=== PATIENT | female | born 1955 | race Caucasian/White ===

== ENCOUNTER 2016-11-24 18:30 | Emergency (ER) | payer OTHER ==
[2016-11-24] MEDS ORDERED: BUFFERED LIDOCAINE 10 ML SYRINGE ONE (19:37)
== END 2016-11-24 20:17 | disposition home or self-care (01) ==
DX: S61.012A Laceration without foreign body of left thumb without damage to nail, initial encounter (principal); W26.0XXA Contact with knife, initial encounter; I10 Essential (primary) hypertension; E11.9 Type 2 diabetes mellitus without complications; Z79.4 Long term (current) use of insulin; Z79.82 Long term (current) use of aspirin

== ENCOUNTER 2017-02-03 10:56 | Outpatient (CLI) | payer OTHER | END 2017-02-03 10:57 | disposition home or self-care (01) | DX: G47.33 Obstructive sleep apnea (adult) (pediatric) (principal); G47.09 Other insomnia ==

== ENCOUNTER 2017-10-17 14:41 | Emergency (ER) | payer OTHER ==
[2017-10-17] MEDS ORDERED: SODIUM CHLORIDE 0.9% 1,000 ML IV ONE (15:18)
--- NOTE | 2017-10-17 15:24 | ED Physician Documentation ---
History of Present Illness - Stated complaint Stated Complaint: HEADACHE/DISORIENTED - Chief complaint Chief Complaint: Cardiac - History obtained from History obtained from: Patient, Family - History of Present Illness Timing: How many days ago (3) - Additonal information Additional information: 62-year-old female had open heart surgery with a tissue valve replacement done at [facility] in [place] 10 days ago. She was discharged from the hospital 6 days ago. She has been on some furosemide since her surgery and yesterday she went to [place] they told her she was a bit dehydrated and stopped the furosemide and start some extra hydration. She did not get IV fluid yesterday. The patient is complaining of a headache that she has had for the past 3 days and some hallucinations she has been experiencing since right after her surgery. She describes vivid visual hallucinations that were worse 2 nights ago a bit better yesterday and are not occurring right now. She is concerned about her headache and her hallucinations related to her surgery. She is feeling improved with her stamina she is able to do more walking than she was been able to do previously by huge margin. She was barely able to walk across the room without shortness of breath prior to the surgery and now is walking up the grade of the driveway to her home easily. She has not had fever or vomiting. She has been off of her pain medication for 3 days. Review of Systems Constitutional: denies: Fever, Chills, Myalgias, Fatigue Eyes: denies: Decreased vision Ears: denies: Ear pain Nose: denies: Rhinorrhea / runny nose, Congestion Throat: denies: Sore throat Cardiac: denies: Chest pain / pressure, Palpitations Respiratory: denies: Dyspnea, Cough GI: denies: Abdominal Pain, Nausea, Vomiting : denies: Dysuria, Frequency Skin: denies: Rash Musculoskeletal: denies: Neck pain, Back pain, Extremity pain Neurologic: reports: Headache. denies: Generalized weakness, Focal weakness, Numbness, Difficulty speaking, Confused, Head injury, LOC Psychiatric: reports: Hallucinations. denies: Depressed, Suicidal PD PAST MEDICAL HISTORY - Past Medical History Cardiovascular: Hypertension Respiratory: Asthma, Pneumonia Endocrine/Autoimmune: Type 2 diabetes - Past Surgical History Past Surgical History: Yes General: Cholecystectomy /MACHINE GRINDER: section HEENT: Tonsil/Adenoidectomy - Present Medications Home Medications: Ambulatory Orders Medication Instructions Recorded Confirmed Aspirin [Children's Aspirin] 81 mg PO DAILY 10/01/13 10/17/17 Metformin HCl [Metformin HCl ER] 1,000 mg PO BID 10/01/13 10/17/17 Allopurinol 100 mg PO DAILY 03/30/16 10/17/17 Atorvastatin Calcium 40 mg PO DAILY 03/30/16 10/17/17 Gemfibrozil 1 tab PO BID 03/30/16 10/17/17 Insulin Aspart (Vial) [NovoLOG] 4 unit SQ TID 03/30/16 10/17/17 Insulin Glargine,Hum.rec.anlog 72 units SQ DAILY 03/30/16 10/17/17 [Lantus] Lisinopril/Hydrochlorothiazide 03/30/16 [Lisinopril-Hctz 20-12.5 mg Tab] Venlafaxine HCl [Effexor Xr] 150 mg DAILY 03/30/16 10/17/17 Furosemide [Lasix] 20 mg PO DAILY 10/17/17 10/17/17 Hydrocodone/Acetaminophen [[place] 1 - 2 each PO Q4H PRN 10/17/17 10/17/17 5-325 Tablet] Insulin Glargine [Lantus Solostar] 76 unit SQ QPM 10/17/17 10/17/17 Metoprolol Tartrate 25 mg PO BID 10/17/17 10/17/17 Omeprazole [PriLOSEC] 20 mg PO DAILY 10/17/17 10/17/17 Potassium Chloride 10 meq PO DAILY 10/17/17 10/17/17 Sennosides/Docusate Sodium 1 tab PO BID 10/17/17 10/17/17 [Senna-Docusate Sodium Tablet] - Allergies Allergies/Adverse Reactions: Allergies Allergy/AdvReac Type Severity Reaction Status Date / Time No Known Drug Allergies Allergy Verified 10/17/17 14:53 - Social History Does the pt smoke?: No Smoking Status: Never smoker Does the pt drink ETOH?: No Does the pt have substance abuse?: No - Immunizations Immunizations are current?: Yes - POLST Patient has POLST: No PD ED PE NORMAL - Vitals Vital signs reviewed: Yes (normal ) - General General: Alert and oriented X 3, No acute distress, Well developed/nourished - HEENT HEENT: Atraumatic, PERRL, EOMI, Ears normal, Moist mucous membranes, Pharynx benign, Dentition benign - Neck Neck: Supple, no meningeal sign, No bony TTP - Cardiac Cardiac: RRR, No murmur - Respiratory Respiratory: No respiratory distress, Clear bilaterally, Other (The margins of the surgical wounds are with the expected degree of inflamation 10 days post op. There is no surrounding inflamation and no drainage. ) - Abdomen Abdomen: Soft, Non tender - Back Back: No CVA TTP, No spinal TTP - Derm Derm: Normal color, Warm and dry, No rash - Extremities Extremities: No deformity, No edema - Neuro Neuro: No motor deficit, No sensory deficit Eye Opening: Spontaneous Motor: Obeys Commands Verbal: Oriented GCS Score: 15 - Psych Psych: Normal mood, Normal affect Results - Vitals Vitals: Vital Signs - 24 hr 10/17/17 14:47 Temperature 36.0 C L Heart Rate 83 Respiratory 16 Rate Blood Pressure 134/74 H O2 Saturation 98 Oxygen O2 Source Room air - EKG (time done) 1447 Rate: Rate (enter#) (87) Rhythm: NSR Intervals: LBBB Compare to prior EKG: Old EKG unavailable Computer interpretation: Agree with computer - Labs Labs: Laboratory Tests 10/17/17 10/17/17 10/17/17 14:54 15:00 15:00 WBC 9.0 RBC 3.89 L Hgb 11.0 L Hct 32.2 L MCV 82.8 MCH 28.3 MCHC 34.1 RDW 14.3 Plt Count 286 MPV 7.5 L Neut # 5.8 Lymph # 2.1 [place] # 0.8 Eos # 0.2 Baso # 0.1 Absolute Nucleated RBC 0.00 Nucleated RBC % 0.0 Manual Slide Review Indicated Sodium 136 Potassium 4.0 Chloride 99 L Carbon Dioxide 25 Anion Gap 12.0 BUN 27 H Creatinine 1.0 Estimated GFR (MDRD) 56 L Glucose 105 H POC Whole Bld Glucose 106 H Calcium 9.6 Total Bilirubin 0.4 AST 29 ALT 19 Alkaline Phosphatase 53 Troponin I Total Protein 7.6 Albumin 3.2 Globulin 4.4 H Albumin/Globulin Ratio 0.7 L Lipase 47 Urine Color Urine Clarity Urine pH Ur Specific [place] Urine Protein Urine Glucose (UA) Urine Ketones Urine Occult Blood Urine Nitrite Urine Bilirubin Urine Urobilinogen Ur Leukocyte Esterase Ur Microscopic Review Urine Culture Comments 10/17/17 10/17/17 15:00 15:15 WBC RBC Hgb Hct MCV MCH MCHC RDW Plt Count MPV Neut # Lymph # [place] # Eos # Baso # Absolute Nucleated RBC Nucleated RBC % Manual Slide Review Sodium Potassium Chloride Carbon Dioxide Anion Gap BUN Creatinine Estimated GFR (MDRD) Glucose POC Whole Bld Glucose Calcium Total Bilirubin AST ALT Alkaline Phosphatase Troponin I 0.07 Total Protein Albumin Globulin Albumin/Globulin Ratio Lipase Urine Color YELLOW Urine Clarity CLEAR Urine pH 6.0 Ur Specific [place] 1.010 Urine Protein NEGATIVE Urine Glucose (UA) NEGATIVE Urine Ketones NEGATIVE Urine Occult Blood NEGATIVE Urine Nitrite NEGATIVE Urine Bilirubin NEGATIVE Urine Urobilinogen 0.2 (NORMAL) Ur Leukocyte Esterase NEGATIVE Ur Microscopic Review NOT INDICATED Urine Culture Comments NOT INDICATED - Rads (name of study) CT head without Radiology: Prelim report reviewed (Impression: No acute intracranial CT abnormality.), EMP read indepedently, See rad report Procedures - IVC sono (time) 1520 Bedside IVC sono: IVC measures (cm) (1.00), IVC collapsed c insp (cm) (complete) , Dehydration (est just > 1 liter down.) PD MEDICAL DECISION MAKING - ED course Complexity details: reviewed old records, reviewed results, re-evaluated patient , considered differential, d/w patient, d/w family ED course: 62 y/o female with a history of critical arotic stenosis has had a valve replacement done 10 days ago and appears to be recovering well. Today she is here with the chief complaint of confusion and headache and they were told to come to the ED for evaluation. She now feels her symptoms are some improved and I cannot get any confusion from her on history this afternoon. Seems well. She is hydrated with a liter of IV saline she feels well and is discharged. Departure - Departure Disposition: 01 Home, Self Care Clinical Impression: Dehydration Condition: Stable Instructions: ED Dehydration Follow-Up: BRY BROWN MD [Primary Care Provider] -
[2017-10-17 15:36] LABS: BASOPHILS # (AUTO) 0.1 10^3/uL (0.0-0.1); BASOPHILS % (AUTO) 0.6 %; EOSINOPHILS # (AUTO) 0.2 10^3/uL (0.0-0.7); HCT - HEMATOCRIT 32.2 % (37.0-47.0); LYMPHOCYTES # (AUTO) 2.1 10^3/uL (1.5-3.5); LYMPHOCYTES % (AUTO) 23.9 %; MEAN CORPUSCULAR HEMOGLOBIN 28.3 pg (27.0-31.0); MEAN CORPUSCULAR HGB CONC 34.1 g/dL (32.0-36.0); MEAN CORPUSCULAR VOLUME 82.8 fL (81.0-99.0); MEAN PLATELET VOLUME 7.5 fL (7.9-10.8); MONOCYTES # (AUTO) 0.8 10^3/uL (0.0-1.0); MONOCYTES % (AUTO) 9.3 %; NEUTROPHILS # (AUTO) 5.8 10^3/uL (1.5-6.6); NEUTROPHILS % (AUTO) 64.2 %; RED BLOOD COUNT 3.89 10^6/uL (4.20-5.40); RED CELL DISTRIBUTION WIDTH 14.3 % (12.0-15.0)
[2017-10-17 15:41] LABS: BILIRUBIN,URINE NEGATIVE (NEGATIVE)
[2017-10-17 15:43] LABS: UA CHARGE (STRIP ONLY) YES; UR CULTURE IF IND NOT INDICATED
[2017-10-17 15:47] LABS: ALBUMIN/GLOBULIN RATIO 0.7 (1.0-2.2); BILIRUBIN,TOTAL 0.4 mg/dL (0.2-1.0); CALCIUM 9.6 mg/dL (8.5-10.3); TOTAL PROTEIN 7.6 g/dL (6.7-8.2)
--- NOTE | 2017-10-17 16:05 | CT Preliminary Report ---
Exam: CT HEAD W/O IMPRESSION: No acute intracranial CT abnormality. [facility] SITE ID: [id number]
--- NOTE | 2017-10-17 16:07 | CT Report ---
EXAM: CT HEAD EXAM DATE: 10/17/2017 03:41 PM. CLINICAL HISTORY: Headache and hallucinations. COMPARISON: None. TECHNIQUE: Multiaxial CT images were obtained from the foramen magnum to the vertex. Reformats: Coron al. IV contrast: None. In accordance with CT protocol optimization, one or more of the following dose reduction techniques w ere utilized for this exam: automated exposure control, adjustment of mA and/or KV based on patient s ize, or use of iterative reconstructive technique. FINDINGS: Parenchyma: No intraparenchymal hemorrhage. No evidence of mass, midline shift, or CT findings of inf arction. Rankin-white differentiation is distinct. Extraaxial Spaces: Normal for age. No subdural or epidural collections identified. Ventricles: Normal in size and position. Sinuses and Orbits: Imaged paranasal sinuses, orbits, and mastoids show no significant abnormality. Bones: No evidence of fracture or calvarial defect. Other: None. IMPRESSION: No acute intracranial CT abnormality. [facility] Referring Provider Line: [phone] SITE ID: [id number]
[2017-10-17 16:54] VITALS: BP 128/62
[2017-10-17 17:28] LABS: PLATELET ESTIMATE, MANUAL NORMAL (130-450,000) (NORMAL); PLATELET MORPHOLOGY NORMAL APPEARANCE (NORMAL); WBC MORPHOLOGY (MULTIPLE) NORMAL APPEARANCE (NORMAL)
== END 2017-10-17 16:59 | disposition home or self-care (01) ==
LOC: ED 14:41
DX: E86.0 Dehydration (principal); R51 Headache; R41.0 Disorientation, unspecified; R44.1 Visual hallucinations; Z95.2 Presence of prosthetic heart valve; I10 Essential (primary) hypertension; E11.9 Type 2 diabetes mellitus without complications; Z79.4 Long term (current) use of insulin; Z79.82 Long term (current) use of aspirin
CPT/HCPCS: 36415; 70450; 80053; 81001; 81003; 83690; 84484; 85025; 87086; 93005; 99283

== ENCOUNTER 2017-11-02 13:16 | Emergency (ER) | payer OTHER ==
--- NOTE | 2017-11-02 13:38 | ED Physician Documentation ---
PD HPI CHEST PAIN - Stated complaint Stated Complaint: CHEST PX/SOA/LIGHT HEADED - Chief complaint Chief Complaint: Cardiac - History obtained from History obtained from: Patient - History of Present Illness Timing - onset: Other (She had aortic valve replacement In early October at [facility]. She is currently on metoprolol 50 mg twice daily as well as other medications but that is the only cardiac medication. She has a heart monitor on right now because she has been having arrhythmias. It has not been analyzed yet. Today at 11 AM developed more of a racing heart rate and some chest pain. Using a pulse oximeter at home she noted a wide range and her heart rate, down to the 20s and up to 120.) Review of Systems Ten Systems: 10 systems reviewed and negative Constitutional: reports: Reviewed and negative Nose: reports: Reviewed and negative Cardiac: reports: Chest pain / pressure, Palpitations. denies: Pedal edema, Calf pain Respiratory: denies: Dyspnea, Cough PD PAST MEDICAL HISTORY - Past Medical History Cardiovascular: Hypertension Respiratory: Asthma, Pneumonia Endocrine/Autoimmune: Type 2 diabetes - Past Surgical History Past Surgical History: Yes General: Cholecystectomy /WINDOW ASSEMBLER: section Cardiovascular: Valve replacement HEENT: Tonsil/Adenoidectomy - Present Medications Home Medications: Ambulatory Orders Medication Instructions Recorded Confirmed Aspirin [Children's Aspirin] 81 mg PO DAILY 10/01/13 11/02/17 Metformin HCl [Metformin HCl ER] 1,000 mg PO BID 10/01/13 11/02/17 Allopurinol 100 mg PO DAILY 03/30/16 11/02/17 Atorvastatin Calcium 40 mg PO DAILY 03/30/16 11/02/17 Gemfibrozil 1 tab PO BID 03/30/16 11/02/17 Insulin Aspart (Vial) [NovoLOG] 4 unit SQ TID 03/30/16 11/02/17 Insulin Glargine,Hum.rec.anlog 72 units SQ DAILY 03/30/16 11/02/17 [Lantus] Venlafaxine HCl [Effexor Xr] 150 mg DAILY 03/30/16 11/02/17 Furosemide [Lasix] 20 mg PO DAILY 10/17/17 11/02/17 Hydrocodone/Acetaminophen [[place] 1 - 2 each PO Q4H PRN 10/17/17 11/02/17 5-325 Tablet] Insulin Glargine [Lantus Solostar] 75 unit SQ QPM 10/17/17 11/02/17 Metoprolol Tartrate 50 mg PO BID 10/17/17 11/02/17 Omeprazole [PriLOSEC] 20 mg PO DAILY 10/17/17 11/02/17 Potassium Chloride 10 meq PO DAILY 10/17/17 11/02/17 Sennosides/Docusate Sodium 1 tab PO BID 10/17/17 11/02/17 [Senna-Docusate Sodium Tablet] - Allergies Allergies/Adverse Reactions: Allergies Allergy/AdvReac Type Severity Reaction Status Date / Time No Known Drug Allergies Allergy Verified 11/02/17 13:28 - Social History Does the pt smoke?: No Smoking Status: Never smoker Does the pt drink ETOH?: No Does the pt have substance abuse?: No - Family History Family history: reports: Non contributory - Immunizations Immunizations are current?: Yes - POLST Patient has POLST: No PD ED PE NORMAL - Vitals Vital signs reviewed: Yes - General General: Alert and oriented X 3, Other (On the monitor initially she is in supraventricular bigeminy with narrow complexes, occasionally having short and long runs of V. tach with a pulse.) - HEENT HEENT: PERRL, EOMI - Neck Neck: Supple, no meningeal sign, No bony TTP - Cardiac Cardiac: No murmur, Other (Irregular) - Respiratory Respiratory: No respiratory distress, Clear bilaterally - Abdomen Abdomen: Soft, Non tender - Derm Derm: Other (Sternotomy incision clean dry and intact, small scab at the top.) - Extremities Extremities: No edema, No calf tenderness / cord - Neuro Neuro: Alert and oriented X 3, Normal speech - Psych Psych: Normal mood, Normal affect Results - Vitals Vitals: Vital Signs - 24 hr 11/02/17 13:20 Temperature 35.6 C L Heart Rate 61 Respiratory 16 Rate Blood Pressure 137/51 H O2 Saturation 98 Oxygen O2 Source Room air - EKG (time done) 1328 Rate: Rate (enter#) (71) Rhythm: NSR (With supraventricular bigeminy) Intervals: Normal NV QRS: LVH Ischemia: Normal ST segments Computer interpretation: Agree with computer - Labs Labs: Laboratory Tests 11/02/17 11/02/17 11/02/17 13:35 13:35 13:35 WBC 7.6 RBC 4.18 L Hgb 11.5 L Hct 34.5 L MCV 82.5 MCH 27.5 MCHC 33.3 RDW 15.0 Plt Count 366 MPV 7.2 L PT 12.5 INR 1.1 Sodium 141 Potassium 4.2 Chloride 104 Carbon Dioxide 23 Anion Gap 14.0 H BUN 21 H Creatinine 0.9 Estimated GFR (MDRD) 63 L Glucose 171 H Calcium 9.4 Magnesium 1.3 L Total Bilirubin 0.4 AST 21 ALT 17 Alkaline Phosphatase 81 Total Creatine Kinase 25 Total Protein 7.9 Albumin 3.6 Globulin 4.3 H Albumin/Globulin Ratio 0.8 L Lipase 39 PD MEDICAL DECISION MAKING - ED course ED course: 62-year-old woman with a recent aortic valve replacement presents with palpitations and mild chest pain. Initial rhythm on the monitor with supraventricular bigeminy but she did go into a stable V. tach with a pulse and blood pressure well we were talking. Spoke with Dr. Matthews, cardiology at [facility] who recommended amiodarone bolus 150 mg, and infusion. Following that I spoke with Dr. Cruz, the hospitalist there, There was some Confusion about who would be the accepting physician and they will call me back. Electrolytes notable for hypomagnesemia which was repleted with 2 g IV. - Critical Care Time(min): 40 Time Includes: Direct patient care, Review records, Reassess patient, Document care, Coordinate care, Medical consult, Family consult for tx dec Data interpretation: Labs, Pulse ox Procedures included in critical care time: Peripheral IV Procedures excluded from critical care time: EKG Departure - Departure Disposition: 02 Transfer Acute Care Hosp Clinical Impression: V-tach Condition: Stable
[2017-11-02 13:50] LABS: BASOPHILS % (AUTO) 0.7 %; EOSINOPHILS % (AUTO) 5.4 %; HGB - HEMOGLOBIN 11.5 g/dL (12.0-16.0); LYMPHOCYTES % (AUTO) 36.6 %; MEAN CORPUSCULAR HEMOGLOBIN 27.5 pg (27.0-31.0); MEAN CORPUSCULAR HGB CONC 33.3 g/dL (32.0-36.0); MEAN CORPUSCULAR VOLUME 82.5 fL (81.0-99.0); MEAN PLATELET VOLUME 7.2 fL (7.9-10.8); MONOCYTES % (AUTO) 7.8 %; NEUTROPHILS % (AUTO) 49.5 %; PLT - PLATELET COUNT 366 10^3/uL (130-450); RED BLOOD COUNT 4.18 10^6/uL (4.20-5.40); WHITE BLOOD COUNT 7.6 x10^3/uL (4.8-10.8)
[2017-11-02] MEDS ORDERED: AMIODARONE 150 MG/3 ML VIAL IVP STA (13:51)
[2017-11-02 13:52] LABS: ABNORMAL LYMPHS % (MANUAL) 0 %
[2017-11-02] MEDS ORDERED: AMIODARONE 150 MG/100 ML 100 ML IV ONE (13:52)
[2017-11-02 13:53] LABS: INR 1.1 (0.8-1.2); PT - PROTHROMBIN TIME 12.5 secs (9.9-12.6)
[2017-11-02 13:59] LABS: ALBUMIN 3.6 g/dL (3.2-5.5); ALBUMIN/GLOBULIN RATIO 0.8 (1.0-2.2); BILIRUBIN,TOTAL 0.4 mg/dL (0.2-1.0); CALCIUM 9.4 mg/dL (8.5-10.3); CREATININE 0.9 mg/dL (0.4-1.0); MAGNESIUM 1.3 mg/dL (1.7-2.8); TOTAL PROTEIN 7.9 g/dL (6.7-8.2)
[2017-11-02] MEDS ORDERED: AMIODARONE 360 MG/200 ML 200 ML IV ONE (13:59)
[2017-11-02] MEDS ORDERED: MAGNESIUM SULFATE 2 GRAM 2 GM/50 ML BAG IV ONE (14:02)
[2017-11-02 14:04] LABS: TROPONIN I < 0.04 ng/mL (<0.49)
[2017-11-02 14:06] LABS: CREATINE KINASE MB 1.4 ng/mL (0.6-6.3)
[2017-11-02 14:11] LABS: BAND NEUTROPHILS % (MANUAL) 5 %; EOSINOPHILS # (MANUAL) 0.2 10^3/uL (0-0.7); LYMPHOCYTES # (MANUAL) 2.7 10^3/uL (1.5-3.5); LYMPHOCYTES % (MANUAL) 36 %; MONOCYTES # (MANUAL) 0.4 10^3/uL (0.0-1.0); MYELOCYTES % (MANUAL) 3 %; NEUTROPHILS % (MANUAL) 48 %
[2017-11-02 14:13] LABS: DIFFERENTIAL COMMENT MANUAL DIFFERENTIAL; PLATELET ESTIMATE, MANUAL NORMAL (130-450,000) (NORMAL); PLATELET MORPHOLOGY NORMAL APPEARANCE (NORMAL); RBC MORPHOLOGY (MULTIPLE) 1+ POLYCHROMASIA (NORMAL)
[2017-11-02 16:13] VITALS: BP 117/66
== END 2017-11-02 16:41 | disposition short-term general hospital (02) ==
LOC: ED 13:16
DX: I47.2 Ventricular tachycardia (principal); Z95.2 Presence of prosthetic heart valve; I10 Essential (primary) hypertension; E11.9 Type 2 diabetes mellitus without complications; Z79.4 Long term (current) use of insulin; J45.909 Unspecified asthma, uncomplicated; Z79.82 Long term (current) use of aspirin
CPT/HCPCS: 36415; 80053; 82550; 82553; 83690; 83735; 84484; 85025; 85610; 93005; 96365; 96366; 96375; 99284; 99291; J0282

== ENCOUNTER 2018-03-19 08:20 | Outpatient (CLI) | payer OTHER ==
[2018-03-19] MEDS ORDERED: GADOBUTROL 10 MMOL/10 ML SYRINGE ONE (08:38)
[2018-03-19] MEDS ORDERED: GADOBUTROL 10 MMOL/10 ML SYRINGE IVP ONE (09:24)
--- NOTE | 2018-03-19 22:01 | MRI Report ---
EXAM: MRI BRAIN WITHOUT AND WITH CONTRAST EXAM DATE: 03/19/2018 09:35 AM. CLINICAL HISTORY: Dizziness and giddiness. COMPARISON: CT scan of the head without contrast 10/17/2017. TECHNIQUE: Multiplanar, multisequence T1-weighted and fluid-sensitive MR sequences of the brain were performed. Sequences optimized for routine evaluation. Other: None. IV Contrast: 10 mL Gadavist. FINDINGS: The diffusion-weighted images are normal. There is no evidence of acute or subacute cerebral infarcti on. The corpus callosum is of normal size and configuration. The pituitary and sella are normal. The aircraft engineer niocervical junction is normal. The images are degraded by extensive motion. There is a punctate focus of susceptibility demonstrated in the right temporal lobe. There is a larger focus of susceptibility in the left frontal lobe measu ring 4 mm. This can be secondary to old blood products from remote microhemorrhages from chronic hype rtensive encephalopathy versus amyloid angiopathy. Other etiologies which can produce a similar appea carlos would include cavernoma. The FLAIR images demonstrate a few punctuate T2 hyperintensities within the subcortical, deep, and pe riventricular white matter. This is consistent with a mild degree of chronic small vessel ischemia. There is no significant generalized volume loss. There is normal enhancement within the brain parenchyma. There is normal enhancement within the deep venous sinuses. IMPRESSION: 1. The images are degraded by motion. 2. There is no evidence of acute or subacute cerebral infarction. 3. There is a punctate focus of susceptibility in the right temporal lobe and a larger focus in the l eft frontal lobe. These are consistent with old blood products from a prior microhemorrhage which can be seen in cases of chronic hypertensive encephalopathy versus amyloid angiopathy. Cavernoma can pro duce a similar appearance. 4. There is no evidence of brain mass. 5. There is mild degree of chronic small vessel ischemia. Referring Provider Line: [phone] SITE ID: [id number]
== END 2018-03-19 08:21 | disposition home or self-care (01) ==
LOC: DI 08:20
PROVIDERS: ATTEND Internal Medicine
DX: R42 Dizziness and giddiness (principal)
CPT/HCPCS: 70553; A9585

== ENCOUNTER 2019-02-07 09:55 | Outpatient (CLI) | payer OTHER | END 2019-02-07 09:56 | disposition home or self-care (01) | LOC: SC 09:55 | PROVIDERS: ATTEND Nurse Practitioner Family | DX: G47.33 Obstructive sleep apnea (adult) (pediatric) (principal) | CPT/HCPCS: 99212; 99215 ==

== ENCOUNTER 2019-04-04 10:48 | Outpatient (CLI) | payer OTHER | END 2019-04-04 10:49 | disposition home or self-care (01) | LOC: SC 10:48 | PROVIDERS: ATTEND Nurse Practitioner Family | DX: G47.33 Obstructive sleep apnea (adult) (pediatric) (principal) | CPT/HCPCS: 99212; 99214 ==

== ENCOUNTER 2020-06-20 12:03 | Emergency (ER) | payer MEDICARE, OTHER ==
--- NOTE | 2020-06-20 12:54 | ED Physician Documentation ---
PD HPI HEENT - Stated complaint Stated Complaint: DIZZINESS - Chief complaint Chief Complaint: General - History obtained from History obtained from: Patient - History of Present Illness Timing - onset: Today Timing - details: Still present, Waxing and waning Location: Other (onset vertigo feeling when got out of bed this morning. had it briefly when got out of bed ysterday but improved after 15-20 minutes. Persists here today and worse with ROM of the head.) Worsens: Position Associated symptoms: Congestion. No: Fever, Rhinorrhea, Cough Similar symptoms before: Diagnosis (vertigo in the past. no recent problems.) Recently seen: Not recently seen Review of Systems Constitutional: denies: Fever, Chills Eyes: denies: Loss of vision, Decreased vision Ears: reports: Loss of hearing. denies: Ear pain Nose: reports: Congestion Throat: denies: Sore throat Respiratory: denies: Cough GI: denies: Abdominal Pain, Nausea Neurologic: reports: Head injury (she says she did fall accidentally few weeks ago and struck head. Mild headache at times.). denies: Focal weakness, Numbness PD PAST MEDICAL HISTORY - Past Medical History Cardiovascular: Hypertension Respiratory: Asthma, Pneumonia Endocrine/Autoimmune: Type 2 diabetes - Past Surgical History Past Surgical History: Yes General: Cholecystectomy /REAL ESTATE CLOSER: section Cardiovascular: Valve replacement HEENT: Tonsil/Adenoidectomy - Present Medications Home Medications: Ambulatory Orders Medication Instructions Recorded Confirmed Aspirin [Children's Aspirin] 81 mg PO DAILY 10/01/13 11/02/17 Metformin HCl [Metformin HCl ER] 1,000 mg PO BID 10/01/13 11/02/17 Atorvastatin Calcium 40 mg PO DAILY 03/30/16 11/02/17 Insulin Aspart (Vial) [NovoLOG] 4 unit SQ TID 03/30/16 11/02/17 Insulin Glargine,Hum.rec.anlog 72 units SQ DAILY 03/30/16 11/02/17 [Lantus] Venlafaxine HCl [Effexor Xr] 150 mg DAILY 03/30/16 11/02/17 allopurinoL [Allopurinol] 100 mg PO DAILY 03/30/16 11/02/17 gemfibroziL [Gemfibrozil] 1 tab PO BID 03/30/16 11/02/17 Furosemide [Lasix] 20 mg PO DAILY 10/17/17 11/02/17 Hydrocodone/Acetaminophen [[place] 1 - 2 each PO Q4H PRN 10/17/17 11/02/17 5-325 Tablet] Insulin Glargine [Lantus Solostar] 75 unit SQ QPM 10/17/17 11/02/17 Metoprolol Tartrate 50 mg PO BID 10/17/17 11/02/17 Omeprazole [PriLOSEC] 20 mg PO DAILY 10/17/17 11/02/17 Potassium Chloride 10 meq PO DAILY 10/17/17 11/02/17 Sennosides/Docusate Sodium 1 tab PO BID 10/17/17 11/02/17 [Senna-Docusate Sodium Tablet] Cetirizine [ZyrTEC] 10 mg PO DAILY #15 tablet 06/20/20 Fluticasone [Flonase] 1 sprays AKIL BID #1 bottle 06/20/20 Meclizine HCl 25 mg PO Q6H PRN #30 tablet 06/20/20 - Allergies Allergies/Adverse Reactions: Allergies Allergy/AdvReac Type Severity Reaction Status Date / Time No Known Drug Allergies Allergy Verified 11/02/17 13:28 - Social History Does the pt smoke?: No Smoking Status: Never smoker Does the pt drink ETOH?: No Does the pt have substance abuse?: No - Immunizations Immunizations are current?: Yes - POLST Patient has POLST: No PD ED PE NORMAL - Vitals Vital signs reviewed: Yes - General General: Alert and oriented X 3, No acute distress, Well developed/nourished - HEENT HEENT: Atraumatic, PERRL, EOMI (with nystagmus to the right. ), Moist mucous membranes, Pharynx benign. No: Ears normal (left is good. Right TM with fluid bulging. No redness nor purulence.) - Neck Neck: Supple, no meningeal sign, No adenopathy - Cardiac Cardiac: RRR, No murmur - Respiratory Respiratory: Clear bilaterally - Derm Derm: Normal color, Warm and dry - Neuro Neuro: Alert and oriented X 3, subway guard 2-12 intact, No motor deficit, No sensory deficit, Normal speech, Other Eye Opening: Spontaneous Motor: Obeys Commands Verbal: Oriented GCS Score: 15 Results - Vitals Vitals: Vital Signs - 24 hr 06/20/20 06/20/20 06/20/20 12:09 13:01 15:26 Temperature 37 C Heart Rate 78 75 69 Respiratory 16 14 17 Rate Blood Pressure 150/70 H 182/66 H 147/75 H O2 Saturation 95 97 96 Oxygen O2 Source Room air - Labs Labs: Laboratory Tests 06/20/20 06/20/20 06/20/20 13:41 13:41 13:41 WBC 7.5 RBC 4.55 Hgb 13.2 Hct 39.0 MCV 85.7 MCH 29.0 MCHC 33.8 RDW 13.4 Plt Count 184 MPV 9.3 Neut # (Auto) 4.1 Lymph # (Auto) 2.8 [place] # (Auto) 0.5 Eos # (Auto) 0.1 Baso # (Auto) 0.0 Absolute Nucleated RBC 0.00 Nucleated RBC % 0.0 Sodium 138 Potassium 4.3 Chloride 103 Carbon Dioxide 24 Anion Gap 11.0 BUN 19 Creatinine 0.7 Estimated GFR (MDRD) 84 L Glucose 239 H Calcium 9.5 Magnesium 1.3 L Total Bilirubin 1.1 H AST 27 ALT 28 Alkaline Phosphatase 48 Total Protein 6.8 Albumin 3.7 Globulin 3.1 Albumin/Globulin Ratio 1.2 Lipase 36 TSH 3.12 - Rads (name of study) head T Radiology: Prelim report reviewed, EMP read contemporaneously, See rad report PD MEDICAL DECISION MAKING - ED course Complexity details: reviewed results (seems inner ear vertigo. Right TM with serous otitis. had fallen and has had some headache so got CT to ensure no hygroma/subdural. This is normal. ), considered differential, d/w patient Departure - Departure Disposition: 01 Home, Self Care Clinical Impression: Vertigo Labyrinthitis, acute Qualifiers: Laterality: unspecified laterality Qualified Code(s): H83.09 - Labyrinthitis, unspecified ear Condition: Stable Record reviewed to determine appropriate education?: Yes Instructions: ED Vertigo Unspecified Follow-Up: JAMES AQUINO MD [Primary Care Provider] - Prescriptions: Fluticasone [Flonase] 1 sprays AKIL BID #1 bottle Meclizine HCl 25 mg PO Q6H PRN #30 tablet PRN Reason: Vertigo Cetirizine [ZyrTEC] 10 mg PO DAILY #15 tablet Comments: This sounds like inflammation or pressure in the inner ear causing vertigo. Use the cetirizine daily and Flonase nasal sprays as directed. Add meclizine every 6 hours if needed for vertigo symptoms. Recheck if not improving well over the next 2 to 3 days and return if worsening. Discharge Date/Time: 06/20/20 15:38
[2020-06-20] MEDS: MECLIZINE 12.5 MG TABLET PO STA (13:42)
[2020-06-20] MEDS: CETIRIZINE 10 MG TABLET PO STA (13:42)
[2020-06-20 13:46] LABS: BASOPHILS % (AUTO) 0.5 %; EOSINOPHILS # (AUTO) 0.1 10^3/uL (0.0-0.7); EOSINOPHILS % (AUTO) 0.9 %; HGB - HEMOGLOBIN 13.2 g/dL (12.0-16.0); LYMPHOCYTES # (AUTO) 2.8 10^3/uL (1.5-3.5); LYMPHOCYTES % (AUTO) 36.7 %; MEAN CORPUSCULAR HGB CONC 33.8 g/dL (32.0-36.0); MEAN CORPUSCULAR VOLUME 85.7 fL (81.0-99.0); MEAN PLATELET VOLUME 9.3 fL (7.9-10.8); MONOCYTES # (AUTO) 0.5 10^3/uL (0.0-1.0); MONOCYTES % (AUTO) 6.1 %; NEUTROPHILS # (AUTO) 4.1 10^3/uL (1.5-6.6); NEUTROPHILS % (AUTO) 55.1 %; PLT - PLATELET COUNT 184 10^3/uL (130-450); RED BLOOD COUNT 4.55 10^6/uL (4.20-5.40); RED CELL DISTRIBUTION WIDTH 13.4 % (12.0-15.0); WHITE BLOOD COUNT 7.5 x10^3/uL (4.8-10.8)
--- NOTE | 2020-06-20 14:01 | CT Report ---
PROCEDURE: HEAD WO INDICATIONS: recent fall/head impact - feeling dizzy TECHNIQUE: Noncontrast 4.5 mm thick angled axial sections acquired from the foramen magnum to the vertex. For r adiation dose reduction, the following was used: automated exposure control, adjustment of mA and/or kV according to patient size. COMPARISON: 10/17/17. Correlation is also made with MRI, 03/19/2018 FINDINGS: Image quality: Excellent. CSF spaces: Basal cisterns are patent. No extra-axial fluid collections. Ventricles are normal in size and shape. Brain: No midline shift. No intracranial masses or hemorrhage. Rankin-white matter interface is norm al. Skull and face: Calvarium and visualized facial bones are intact, without suspicious lesions. Hyper ostosis frontalis is incidentally noted, which is not frankly abnormal for a female patient of this a ge. Sinuses: Visualized sinuses and mastoids are clear. IMPRESSION: No intracranial hemorrhage is seen. No significant intracranial abnormality is seen. Reviewed by: Gómez Lujan MD on 06/20/2020 1:00 PM DEVANG Approved by: Gómez Lujan MD on 06/20/2020 1:00 PM DEVANG Station ID: [id number]
[2020-06-20 14:02] LABS: ALBUMIN 3.7 g/dL (3.2-5.5); ALBUMIN/GLOBULIN RATIO 1.2 (1.0-2.2); BILIRUBIN,TOTAL 1.1 mg/dL (0.2-1.0); CALCIUM 9.5 mg/dL (8.5-10.3); CREATININE 0.7 mg/dL (0.4-1.0); MAGNESIUM 1.3 mg/dL (1.7-2.8); TOTAL PROTEIN 6.8 g/dL (6.7-8.2)
[2020-06-20 15:27] VITALS: BP 147/75
== END 2020-06-20 15:38 | disposition home or self-care (01) ==
LOC: ED 12:03
DX: H83.09 Labyrinthitis, unspecified ear (principal); H65.91 Unspecified nonsuppurative otitis media, right ear; I10 Essential (primary) hypertension; E11.9 Type 2 diabetes mellitus without complications; Z79.4 Long term (current) use of insulin; Z79.82 Long term (current) use of aspirin
CPT/HCPCS: 36415; 70450; 80053; 83690; 83735; 84443; 85025; 93005; 99284; A9270

== ENCOUNTER 2020-07-24 13:10 | Outpatient (CLI) | payer MEDICARE, OTHER ==
--- NOTE | 2020-07-24 14:01 | SLEEP CARE CONSULTATION ---
Information from patient questionnaire entered by Feli Paulino. I have reviewed and concur with the information entered by Feli Paulino. This document represents the service I personally performed and the decisions made by me, Bruce Bennett MD, [facility]. History of Present Illness Service Date and Time: 07/24/2020 1310 Previous diagnosis: Mild, Obstructive Sleep Apnea-Hypopnea Syndrome AHI: 14 (in 2015) Reason for follow up: annual (last seen 2019) Equipment type: CPAP Equipment obtained from: [facility] Mask style: Nasal Prior sleep studies: Yes Year and Where: 2016 - [facility] Type of Sleep Study: Polysomnography HPI additional information: HPI: Ms. Burgess was called today to follow up on the nasal CPAP therapy. She was diagnosed to have mild obstructive sleep apnea-hypopnea syndrome. The patient wears with a nasal mask. [facility] is her durable medical supplier. She reports using the device nightly and all through the night. The compliance data show usage in 177 out of the past 180 nights, averaging 6.6 hours a night. The > 4 hour compliance rate for the past 180 days is 86%. She complained of no particular problem with the device such as soreness on the face, dry nose, epistaxis, nasal congestion or headache. She has the heated humidifier set at 5. She thinks that the pressure of 12 cmH2O is comfortable. On the CPAP therapy she notices improvement in her sleep quality, and that she wakes up feeling fresher in the morning and more awake/alert during the day. The [place] Sleepiness Scale score 6. Her notices no snore at all. The average residual AHI is 5.0 : and average time in large leak per day is 1 minute. CPAP Compliance Data - Data Reviewed with Patient Average duration of nightly device use: 6.55 Compliance rate %: 86.1 (180 days) Current pressure setting (cmH2O): 12 Humidity settin Heated hose settin Average residual AHI: 5.0 Average large leak: 1 min 26 sec Subjective Patient concerns: reports: mask leak noise, nasal congestion, dry mouth, nose, throat, other (snore while using device) Current pressure setting perceived as: comfortable Initial [place] Sleepiness Scale score: 12 (in 2015) Current [place] Sleepiness Scale score: 6 Allergies and Home Medications Drug allergies reviewed: Yes Home medication list reviewed: Yes Review of Systems Review of systems same as previous: Yes Physical Exam Vital signs obtained and entered by: To minimize the risk of COVID-19 exposure, detailed exam was not performed. Height: 5 ft 5 in Impression and Plan IMPRESSION: 1. Obstructive Sleep Apnea-Hypopnea Syndrome, mild, with the patient doing well on nasal CPAP therapy. She has excellent compliance and significant clinical improvement. The current pressure appears effective and comfortable. Her mask fits well. Overall, she is very satisfied with treatment and plans to continue with it long-term. Because the residual AHI is borderline elevated, I will make her device an autoCPAP set between 12 and 15 cmH2O. PLAN: 1. Set autoCPAP set at 12 - 15 cmH2O. 2. Try to lose weight 3. Try other masks and nasal pillows. 4. Return in one year for follow up or earlier if there is any problem with the treatment. Visit Type: In Office Time Spent with Patient (minutes): 15 Provider Statement: I spent 100% of the Face to Face Visit with the patient with greater than 50% spent counseling the patient and coordination of care.
== END 2020-07-24 13:11 | disposition home or self-care (01) ==
LOC: SC 13:10
PROVIDERS: ATTEND Internal Medicine Pulmonary Disease
DX: G47.33 Obstructive sleep apnea (adult) (pediatric) (principal)
CPT/HCPCS: 99213; G0463; 99212

== ENCOUNTER 2021-05-08 12:51 | Outpatient (CLI) | payer MEDICARE, OTHER ==
--- NOTE | 2021-05-08 14:33 | DEXA Report ---
PROCEDURE: Dexa Spine and/or Hip INDICATIONS: POST MENOPAUSAL TECHNIQUE: Dual energy x-ray absorptiometry (DXA) was performed on a [email or web address] System. Regions measur ed are the AP Spine, femoral neck, and if needed forearm. COMPARISON: None. FINDINGS: Lumbar Spine: Bone Mineral Density 1.335 g/cm/cm,T score 1.3, normal Left Hip: Bone Mineral Density 1.170 g/cm/cm,T score 1.3, normal Left Femoral Neck: Bone Mineral Density 1.094 g/cm/cm, T score 0.4, normal (T score greater or equal to -1.0: NORMAL) (T score from -1.1 to -2.4: OSTEOPENIA) (T score less than or equal to -2.5 to: OSTEOPOROSIS) Impression: Normal bone mineral density at the lumbosacral spine, left hip region overall, and the le ft femoral neck. Patients with diagnosis of osteoporosis or osteopenia should have regular bone mineral density assess ment. For those eligible for Medicare, routine testing is allowed once every 2 years. Testing frequ ency can be increased for patients who have rapidly progressing disease or for those who are receivin g medical therapy to restore bone mass. Reviewed by: Otoniel Melo MD on 05/08/2021 2:32 PM PDT Approved by: Otoniel Meol MD on 05/08/2021 2:32 PM PDT Station ID: [id number]
== END 2021-05-08 12:52 | disposition home or self-care (01) ==
LOC: DI 12:51
PROVIDERS: ATTEND Internal Medicine
DX: Z78.0 Asymptomatic menopausal state (principal)

== ENCOUNTER 2021-05-21 08:23 | Outpatient (CLI) | payer MEDICARE, OTHER ==
--- NOTE | 2021-05-22 15:11 | Mammography Report ---
BILATERAL DIGITAL SCREENING MAMMOGRAM 3D/2D: 05/21/2021 CLINICAL: Routine screening. Comparison is made to exams dated: 08/06/2015 mammogram - [facility], 04/05/2013 mamm ogram, and 09/02/2011 mammogram - [facility]. There are scattered fibroglandular eleme nts in both breasts. No significant masses, calcifications, or other findings are seen in either breast. There has been no significant interval change. IMPRESSION: NEGATIVE There is no mammographic evidence of malignancy. A 1 year screening mammogram is recommended. This exam was interpreted at Station ID: [id number]. NOTE: For mammograms, a report in lay terms will be sent to the patient. Approximately 15% of breast malignancies will not be visualized mammographically. In the management of a palpable breast mass, a negative mammogram must not discourage biopsy of a clinically suspicious lesion. Electronically Signed By: Boom Acharya M.D. ddp/penrad:05/21/2021 09:11:37 ACR BI-RADS Category 1: Negative 3341F PARENCHYMAL PATTERN: (A) - The breast(s) demonstrate(s) scattered fibroglandular densities. BI-RADS CATEGORY: (1) - 1 RECOMMENDATION: (ANNUAL) - Recommend routine annual screening mammography. [id number] 1 year screening LATERALITY: (B)
== END 2021-05-21 08:24 | disposition home or self-care (01) ==
LOC: DI 08:23
DX: Z12.31 Encounter for screening mammogram for malignant neoplasm of breast (principal)

== ENCOUNTER 2022-02-18 12:34 | Outpatient (CLI) | payer MEDICARE, OTHER ==
--- NOTE | 2022-02-18 13:29 | SLEEP CARE CONSULTATION ---
Information from patient questionnaire entered by Eduardo Carrera MA. I have reviewed and concur with the information entered by Eduardo Carerra MA. This document represents the service I personally performed and the decisions made by , Olivia Garcia ARNP. History of Present Illness Service Date and Time: 02/18/2022 1234 Previous diagnosis: Mild, Obstructive Sleep Apnea-Hypopnea Syndrome AHI: 14 (in 2015) Reason for follow up: annual (LAST SEEN 07/2020, ) Equipment type: CPAP [facility] as [facility] Mask style: Nasal Mask brand: Respironics (Dreamwear Wisp) Backup mask available: Yes (old mask ) Last cushion change: 2 months ago [facility] Type of Sleep Study: Polysomnography HPI additional information: RISSA LUA was diagnosed to have mild, AHI 14, obstructive sleep apnea- hypopnea syndrome and returned today for CPAP therapy annual follow-up. Sleep Study - Results Type of Sleep Study: Polysomnography Prior [facility]: Yes [facility] CPAP Compliance Data - Data Reviewed with Patient Average duration of nightly device use: 8 HOURS 13 MINUTES Compliance rate %: 95 Current pressure setting (cmH2O): 12 Humidity settin Heated hose settin Average residual AHI: 3 Central apnea: 0.3 Obstructive apnea: 0.6 Average large leak: 38 MINUTES 11 SECONDS Subjective Missed days of use due to: reports: illness (Covid in November) Patient concerns: reports: air blowing in eyes, mask leak noise, nasal congestion, dry mouth, nose, throat. denies: aerophagia, mask discomfort, condensation in mask/hose, epistaxis, other Observed to snore while using device: No Current pressure setting perceived as: comfortable On therapy, patient: reports: sleeping better, awakening more refreshed, being more awake and alert during the day, more rested overall. denies: drowsiness while driving Initial [place] Sleepiness Scale score: 12 (in 2015) Current [place] Sleepiness Scale score: 6 (01/2022) Allergies and Home Medications Known drug allergies: No Drug allergies reviewed: Yes Home medication list reviewed: Yes (no changes (see scanned list)) Allergy and home medication list: Allergies No Known Drug Allergies Allergy (Verified 11/02/17 13:28) Review of Systems Review of systems same as previous: Yes (no changes) Physical Exam Vital signs obtained and entered by: DIONE MATOS Blood Pressure: 172/84 (LEFT, PULSE 74, RESP 18, ) Cuff size: wrist Heart Rate: 74 O2 Saturation: 96 (CLOTH MASK) Height: 5 ft 5 in Weight: 220 lb Weight change since last visit: LOSING WEIGHT, HAVING DIABETIC SHOT, Body Mass Index: 36.6 BMI Classification: Obese Impression and Plan 1. Obstructive Sleep Apnea-Hypopnea Syndrome, mild, with good treatment compliance and good apnea control. On CPAP therapy, the patient has better sleep quality and is more rested overall. [employer] has a Dreamstation that was last updated in 2016. Patient has already registered their device for the recall. If patient is not able to sleep due to waking up choking, gasping for air or other respiratory distress that they may decide to continue using it until it is either replaced or repaired. Since the patients current machine is at least 5 years old, the patient is opting to update their device with a device that is not on the recall. Thus, the CPAP will be updated. The new CPAPs also have a better humidity system which could assist control of patients dryness symptoms. A DWO prescription will be made. Compliance guidelines for new device and follow up discussed. Patient voiced understanding and agreement with plan. Patient's apnea severity and rationale for treatment to reduce apnea, improve sleep qu ality and reduce cardiovascular and cerebrovascular events was reviewed. I also reviewed the benefit of consistent device use of CPAP for hypertension, gastric reflux and depression. 2. Obesity, unspecified. Currently patients BMI is 36.6. Obesity increases the risk of apnea, CPAP pressure requirements and overall health risks especially cardiovascular and diabetes. Thus patient is advised to continue to try to lose weight. Weight loss can be done with reducing portion size, reducing refined foods and balancing content with vegetables, fruit and whole grain foods. In addition, patient encouraged to get regular exercise. * Continue auto CPAP pressure at 12 cmH2O * Update machine * Update supplies as needed * Notify me if snoring with mask or feeling that the pressure is too much or too little * Continue to try to lose weight * Call this office if any problems using CPAP * Return for follow up one month after obtaining new machine, or sooner if concerns arise Counseling Topics: Spare mask, Weight loss health impact Visit Type: In Office Time Spent with Patient (minutes): 22 Provider Statement: I spent 100% of the Face to Face Visit with the patient with greater than 50% spent counseling the patient and coordination of care.
[2022-02-18 13:31] VITALS: BP 172/84
== END 2022-02-18 12:35 | disposition home or self-care (01) ==
LOC: SC 12:34
PROVIDERS: ATTEND Nurse Practitioner Family
DX: G47.33 Obstructive sleep apnea (adult) (pediatric) (principal); E66.9 Obesity, unspecified; Z68.36 Body mass index [BMI] 36.0-36.9, adult
CPT/HCPCS: 99213; G0463; 99212

== ENCOUNTER 2023-06-12 12:47 | Outpatient (CLI) | payer MEDICARE, OTHER ==
--- NOTE | 2023-06-12 13:24 | SLEEP CARE CONSULTATION ---
Information from patient questionnaire entered by Unique Bustillos. I have reviewed and concur with the information entered by [employer] B[employer]. This document represents the service I personally performed and the decisions made by me, Olivia Garcia ARNP. History of Present Illness Service Date and Time: 06/12/2023 1247 Previous diagnosis: Mild, Obstructive Sleep Apnea-Hypopnea Syndrome AHI: 14 (in 2015) Reason for follow up: annual (LAST SEEN 01/2022) Equipment type: CPAP (GARAY DREAM STATION 2) Equipment obtained from: Other ([employer]; getting supplies as needed) Mask style: Nasal Mask brand: Respironics (Wisp) Backup mask available: Yes (old mask) Last cushion change: 4-5 weeks [facility] Type of Sleep Study: Pol[facility] HPI additional information: RISSA LUA was diagnosed to have mild, AHI 14, obstructive sleep apnea- hypopnea syndrome and returned today for CPAP therapy annual follow-up. Sleep Study - Results Type of Sleep Study: Polysomnography [facility]: Yes [facility] Compliance Data - Data Reviewed with Patient Average duration of nightly device use: 8 HRS 33 MIN 50 SECS Compliance rate %: 95.6 (12/12/22-06/09/23; 175/180 days used) Current pressure setting (cmH2O): 12 Average residual AHI: 2.3 Average large leak: 18 secs Subjective Patient concerns: reports: nasal congestion (hayfever ), dry mouth, nose, throat (occasional; may oral vent at times). denies: aerophagia, mask discomfort, air blowing in eyes, mask leak noise, condensation in mask/hose, epistaxis Observed to snore while using device: No Current pressure setting perceived as: comfortable On therapy, patient: reports: sleeping better, awakening more refreshed, being more awake and alert during the day, more rested overall. denies: drowsiness while driving Initial [place] Sleepiness Scale score: 12 (in 2015) Current [place] Sleepiness Scale score: 9 (06/12/23) Allergies and Home Medications Known drug allergies: No Drug allergies reviewed: Yes Home medication list reviewed: Yes (no changes) Allergy and home medication list: Allergies No Known Drug Allergies Allergy (Verified 06/11/23 14:53) Review of Systems Review of systems same as previous: Yes (no changes) Physical Exam Vital signs obtained and entered by: UNIQUE Wallace MA Blood Pressure: 120/68 (LEFT ARM) Cuff size: regular Heart Rate: 74 O2 Saturation: 99 Height: 5 ft 5 in Weight: 234 lb 6.4 oz Body Mass Index: 38.9 BMI Classification: Obese Impression and Plan 1. Obstructive Sleep Apnea-Hypopnea Syndrome, mild, with good treatment compliance and good apnea control. On CPAP therapy, the patient has better sleep quality and is more rested overall. Patient has significant improvement of their sleep apnea and is satisfied with current CPAP therapy. She is getting some dry mouth but states she uses all of her water and feels it to the fill line. She does average 8 and half hours of sleep which could be why she runs out of water in the mornings. She has not other issues or concerns. We will followup with her in 1 year. Patient's apnea severity and rationale for treatment to reduce apnea, improve sleep quality and reduce cardiovascular and cerebrovascular events was reviewed. I also reviewed the benefit of consistent device use of CPAP for hypertension, gastric reflux and depression. 2. Obesity, unspecified. Currently patients BMI is 38.9. Obesity increases the risk of apnea, CPAP pressure requirements and overall health risks especially cardiovascular and diabetes. Thus patient is advised to lose weight. * Continue CPAP pressure at 12 cmH2O * Update supplies * Notify me if snoring with mask or feeling that the pressure is too much or too little * Attempt to lose weight * Call this office if any problems using CPAP * Return for follow up in 1 year, or sooner if concerns arise Counseling Topics: Spare mask, Weight loss health impact Visit Type: In Office Time Spent with Patient (minutes): 21 Provider Statement: I spent 100% of the Face to Face Visit with the patient with greater than 50% spent counseling the patient and coordination of care.
[2023-06-12 13:27] VITALS: BP 120/68; O2SAT 99
== END 2023-06-12 12:48 | disposition home or self-care (01) ==
LOC: SC 12:47
PROVIDERS: ATTEND Nurse Practitioner Family
DX: G47.33 Obstructive sleep apnea (adult) (pediatric) (principal); E66.9 Obesity, unspecified; Z68.38 Body mass index [BMI] 38.0-38.9, adult
CPT/HCPCS: 99213; G0463; 99212

== ENCOUNTER 2023-12-14 14:28 | Outpatient (CLI) | payer MEDICARE, OTHER ==
--- NOTE | 2023-12-14 18:14 | XRAY Report ---
PROCEDURE: Foot 3+V LT (Weight Bearing) INDICATIONS: LEFT FOOT PAIN TECHNIQUE: 3 weight bearing views of the left foot. COMPARISON: None. FINDINGS: Postsurgical changes from first interphalangeal joint arthrodesis with a single intact metal screw an d solid osseous fusion across the joint line. There is lateral angulation of the second metatarsophal angeal joint with widening of the first webspace. Suspected multiple hammertoe deformities. Degenerat anita spurring is seen in this aspect of the talonavicular and navicular cuneiform articulations. Moder ate calcaneal disc voids are present. Scattered degenerative changes are seen throughout the interpha langeal joints of the toes and metatarsophalangeal joints. No suspicious soft tissue calcifications. IMPRESSION: 1.Postsurgical changes from first interphalangeal joint arthrodesis. 2.Mild lateral angulation at the second metatarsophalangeal joint. 3.Multifocal mild to moderate osteoporosis throughout the forefoot. Moderate degenerative changes are seen in the midfoot. 4.Calcaneal enthesopathy. Reviewed by: Emil Ryan MD on 12/14/2023 6:12 PM PST Approved by: Emil Ryan MD on 12/14/2023 6:12 PM PST Station ID: [id number]
== END 2023-12-14 14:29 | disposition home or self-care (01) ==
LOC: DI 14:28
PROVIDERS: ATTEND Podiatrist
DX: M19.072 Primary osteoarthritis, left ankle and foot (principal); M81.0 Age-related osteoporosis without current pathological fracture; M77.8 Other enthesopathies, not elsewhere classified; Z98.1 Arthrodesis status